=== PATIENT | female | born 1985 | race Hispanic/Latino ===

== ENCOUNTER 2017-03-26 10:20 | Emergency (ER) | payer OTHER ==
[2017-03-26 10:20] VITALS: BMI 29.0
[2017-03-26 10:26] VITALS: BP 128/83; PULSE 75; RESP 18; TEMP 97.9; O2SAT 98
[2017-03-26] MEDS ORDERED: Silver Sulfadiazine 1% Cream (25 gm) TP STA (10:40)
--- NOTE | 2017-03-26 10:41 | ED PDOC ---
Arrival/HPI - General Chief Complaint: Burn Time Seen by Provider: 03/26/17 10:38 Historian: Patient - History of Present Illness Narrative History of Present Illness (Text): 03/26/17 10:30 Adan Monroe is a 32 year old female, who presents to the emergency department complaining of a superficial burn on her 3rd to 5th digits on the right hand prior to arrival. Patient reports as she was getting her coffee, the coffee spilled burning her fingers. Patient denies other complaints. Time/Duration: Prior to Arrival Symptom Onset: Sudden Symptom Course: Unchanged Activities at Onset: Light Past Medical History - Provider Review Nursing Documentation Reviewed: Yes - Infectious Disease Hx of Infectious Diseases: None - Tetanus Immunization Tetanus Immunization: Unknown - Past Medical History Past Medical History: No Previous - Cardiac Hx Cardiac Disorders: No - Pulmonary Hx Respiratory Disorders: Yes Hx Asthma: Yes - Neurological Hx Neurological Disorder: No - HEENT Hx HEENT Disorder: No - Renal Hx Renal Disorder: No - Endocrine/Metabolic Hx Endocrine Disorders: No - Hematological/Oncological Hx Blood Disorders: Yes Hx Hepatitis C: Yes - Integumentary Hx Dermatological Disorder: No - Musculoskeletal/Rheumatological Hx Musculoskeletal Disorders: No - Gastrointestinal Hx Gastrointestinal Disorders: No - Genitourinary/Gynecological Hx Genitourinary Disorders: No - Psychiatric Hx Psychophysiologic Disorder: Yes Hx Depression: No 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) Other/Comment: hx of substance abuse - Surgical History Hx Orthopedic Surgery: Yes (right ankle) - Anesthesia Hx Anesthesia: Yes Hx Anesthesia Reactions: No - Suicidal Assessment Feels Threatened In Home Enviroment: No Family/Social History - Physician Review Nursing Documentation Reviewed: Yes Family/Social History: Other (non-contributory) Smoking Status: Former Smoker Hx Alcohol Use: No 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) Hx Substance Use Treatment: Yes Allergies/Home Meds Allergies/Adverse Reactions: Allergies Penicillins Allergy (Verified 03/26/17 10:26) RASH Home Medications: Home Meds Medication Instructions Recorded Confirmed Methadone [Methadose] 50 mg PO DAILY 12/05/14 03/26/17 Review of Systems - Review of Systems Constitutional: absent: Fevers Respiratory: absent: SOB Skin: Other (burn on 3rd to 5th right digits on hand) Physical Exam Vital Signs Reviewed: Yes Vital Signs Temp Pulse Resp BP Pulse Ox 03/26/17 10:25 97.9 F 75 18 128/83 98 Temperature: Afebrile Blood Pressure: Normal Pulse: Regular Respiratory Rate: Normal Appearance: Positive for: Well-Appearing, Non-Toxic, Comfortable Pain Distress: None Mental Status: Positive for: Alert and Oriented X 3 - Systems Exam Head: Present: Atraumatic, Normocephalic Upper Extremity: Present: Normal Inspection, Normal ROM, NORMAL PULSES, Erythema (mild erythema over medial aspect of 4th digit on right hand. No noted blisters.). No: Cyanosis, Edema Neurological: Present: GCS=15, CN II-XII Intact, Speech Normal Skin: Present: Warm, Dry, Erythematous (mild erythema over medial aspect of 4th digit. No noted blisters.). No: Rashes Psychiatric: Present: Alert, Oriented x 3, Normal Insight, Normal Concentration Medical Decision Making ED Course and Treatment: abx ointment and dressing applied - Medication Orders Current Medication Orders: Discontinued Medications Silver Sulfadiazine (Silvadene 1% 25 Gm) 0 gm TP STAT STA Stop: 03/26/17 10:41 Last Admin: 03/26/17 10:52 Dose: 1 gm - Scribe Statement The provider has reviewed the documentation as recorded by the Scribe Cindy Rajan Provider Scribe Attestation: All medical record entries made by the Scribe were at my direction and personally dictated by me. I have reviewed the chart and agree that the record accurately reflects my personal performance of the history, physical exam, medical decision making, and the department course for this patient. I have also personally directed, reviewed, and agree with the discharge instructions and disposition. Disposition/Present on Arrival - Present on Arrival Any Indicators Present on Arrival: No History of DVT/PE: No History of Uncontrolled Diabetes: No Urinary Catheter: No History of Decub. Ulcer: No History Surgical Site Infection Following: None - Disposition Have Diagnosis and Disposition been Completed?: Yes Diagnosis: Superficial burn of hand Disposition: HOME/ ROUTINE Disposition Time: 10:35 Patient Plan: Discharge Condition: STABLE Discharge Instructions (ExitCare): Superficial Burn (ED) Additional Instructions: Please follow up with your doctor. Return to the ER for any worsening symptoms or for any other concerns. Referrals: [facility] [place] - Follow up with primary Forms: [employer] (German)
== END 2017-03-26 10:57 | disposition home or self-care (01) ==
LOC: ED 10:20
DX: T23.131A Burn of first degree of multiple right fingers (nail), not including thumb, initial encounter (principal); X10.0XXA Contact with hot drinks, initial encounter

== ENCOUNTER 2018-10-05 11:25 | Emergency (ER) | payer OTHER ==
[2018-10-05 11:30] VITALS: BP 135/76; PULSE 103; RESP 18; TEMP 98.2; O2SAT 98; BMI 29.5
--- NOTE | 2018-10-05 12:06 | ED PDOC ---
Arrival/HPI - General Historian: Patient - History of Present Illness Narrative History of Present Illness (Text): 10/05/18 12:12 A 33 year old female, with no significant past medical history, who presents to the ED complaining of left side dental pain x 2 days, L jaw pain and swelling since this AM. Patient reports she saw her dentist yesterday regarding the pain, who prescribed her Amoxicillin 500 to be taken 3 times a day. Patient also notes waking up today and noticing swelling in addition to the pain. Patient denies any fever, chills, headache, redness, shortness of breath or difficulty swallowing. Time/Duration: 4-6 hours Symptom Onset: Gradual Symptom Course: Unchanged Activities at Onset: Light Context: Home <Radha Dumas PA-C - Last Filed: 10/05/18 14:33> <Viraj Benítez - Last Filed: 10/05/18 15:11> - General Chief Complaint: Dental Pain Time Seen by Provider: 10/05/18 11:28 Past Medical History - Provider Review Nursing Documentation Reviewed: Yes - Infectious Disease Hx of Infectious Diseases: None - Tetanus Immunization Tetanus Immunization: Unknown - Past Medical History Past Medical History: No Previous - Cardiac Hx Cardiac Disorders: No - Pulmonary Hx Asthma: Yes - Neurological Hx Neurological Disorder: No - HEENT Hx HEENT Disorder: No - Renal Hx Renal Disorder: No - Endocrine/Metabolic Hx Endocrine Disorders: No - Hematological/Oncological Hx Blood Disorders: Yes Hx Hepatitis C: Yes - Integumentary Hx Dermatological Disorder: No - Musculoskeletal/Rheumatological Hx Musculoskeletal Disorders: No - Gastrointestinal Hx Gastrointestinal Disorders: No - Genitourinary/Gynecological Hx Genitourinary Disorders: No - Psychiatric Hx Depression: No 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) - Surgical History Hx Orthopedic Surgery: Yes (right ankle) - Anesthesia Hx Anesthesia: Yes Hx Anesthesia Reactions: No - Suicidal Assessment Feels Threatened In Home Enviroment: No <Radha Dumas PA-C - Last Filed: 10/05/18 14:33> Family/Social History - Physician Review Nursing Documentation Reviewed: Yes Family/Social History: Unknown Family HX Smoking Status: Light Smoker < 10 Cigarettes Daily Hx Alcohol Use: No 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) Hx Substance Use Treatment: Yes <Radha Dumas PA-C. - Last Filed: 10/05/18 14:33> Allergies/Home Meds <Radha Dumas PA-C - Last Filed: 10/05/18 14:33> <Viraj Benítez - Last Filed: 10/05/18 15:11> Allergies/Adverse Reactions: Allergies Penicillins Allergy (Verified 08/08/18 13:05) VOMITING Home Medications: Home Meds Medication Instructions Recorded Confirmed Methadone [Methadose] 80 mg PO DAILY 12/05/14 08/08/18 Review of Systems - Physician Review All systems were reviewed & negative as marked: Yes - Review of Systems Constitutional: Normal Eyes: Normal ENT: absent: Other (left jaw pain and swelling) Respiratory: absent: SOB, Cough Cardiovascular: absent: Chest Pain Gastrointestinal: absent: Abdominal Pain, Nausea, Vomiting Genitourinary Female: absent: Dysuria, Frequency Musculoskeletal: absent: Back Pain, Neck Pain Skin: Normal. absent: Rash Neurological: Normal. absent: Headache Endocrine: absent: Diaphoresis Hemo/Lymphatic: absent: Adenopathy Psychiatric: absent: Anxiety, Depression <Radha Dumas PA-C - Last Filed: 10/05/18 14:33> Physical Exam Vital Signs Reviewed: Yes Vital Signs Temp Pulse Resp BP Pulse Ox 10/05/18 11:29 98.2 F 103 H 18 135/76 98 Temperature: Afebrile Blood Pressure: Normal Pulse: Tachycardic Respiratory Rate: Normal Appearance: Positive for: Well-Appearing, Non-Toxic, Comfortable Mental Status: Positive for: Alert and Oriented X 3 - Systems Exam Head: Present: Atraumatic, Normocephalic Pupils: Present: PERRL Extroacular Muscles: Present: EOMI Conjunctiva: Present: Normal Ears: Present: Normal Mouth: Present: Moist Mucous Membranes, Other (Mild edema to left mandible, no erythema. +two left bottom molars remaining, which are decaying due to poor dentition.) Pharnyx: Present: Normal. No: ERYTHEMA, EXUDATE, TONSILS ENLARGED, Uvular Deviation Nose (External): Present: Atraumatic Nose (Internal): Present: Normal Inspection Neck: Present: Normal Range of Motion. No: Meningeal Signs, MIDLINE TENDERNESS, Paraspinal Tenderness, Lymphadenopathy Neurological: Present: GCS=15, CN II-XII Intact, Speech Normal Skin: Present: Warm, Dry, Normal Color. No: Rashes Psychiatric: Present: Alert, Oriented x 3, Normal Insight, Normal Concentration <Radha Dumas PA-C - Last Filed: 10/05/18 14:33> Vital Signs Temp Pulse Resp BP Pulse Ox 10/05/18 11:29 98.2 F 103 H 18 135/76 98 <Viraj Beníetz - Last Filed: 10/05/18 15:11> Medical Decision Making ED Course and Treatment: Impression: A 33 year old patient who presents to the ED for left side jaw swelling and p ain. Diagnosis: 2 left bottom molars remaining, which are decaying with mild gingival swelling and tenderness due to poor dentition. Plan: -- Discharge, outpatient follow up Prior Visits: Notes and results from previous visits were reviewed. Patient was last seen in the emergency department on Progress Notes: 10/05/18 12:02 Advised to follow up with her dentist on her scheduled appointment in 2 days without fail. Advised to continue current antibiotics, apply warm compresses. Return to the emergency room at any time for any new or worsening symptoms. Patient states she fully agrees with and understands discharge instructions. States that she agrees with the plan and disposition. Verbalized and repeated discharge instructions and plan. I have given the patient opportunity to ask any additional questions. <Radha Dumas PA-C - Last Filed: 10/05/18 14:33> - PA / SEED ANALYSIS LABORATORY ASSISTANT / Resident Statement / has reviewed & agrees with the documentation as recorded. - Scribe Statement The provider has reviewed the documentation as recorded by the Billy Mohan Provider Scribe Attestation: All medical record entries made by the Billy were at my direction and personally dictated by me. I have reviewed the chart and agree that the record accurately reflects my personal performance of the history, physical exam, medical decision making, and the department course for this patient. I have also personally directed, reviewed, and agree with the discharge instructions and disposition. <Radha Dumas PA-C - Last Filed: 10/05/18 14:33> - PA / SEED ANALYSIS LABORATORY ASSISTANT / Resident Statement KISHA has reviewed & agrees with the documentation as recorded. <Viraj Benítez - Last Filed: 10/05/18 15:11> Disposition/Present on Arrival - Present on Arrival Any Indicators Present on Arrival: No History of DVT/PE: No History of Uncontrolled Diabetes: No Urinary Catheter: No History of Decub. Ulcer: No History Surgical Site Infection Following: None - Disposition Have Diagnosis and Disposition been Completed?: Yes Disposition Time: 11:50 Patient Plan: Discharge <Radha Dumas PA-C - Last Filed: 10/05/18 14:33> <Viraj Benítez - Last Filed: 10/05/18 15:11> - Disposition Diagnosis: Dental abscess Disposition: HOME/ ROUTINE Condition: STABLE Discharge Instructions (ExitCare): Tooth Abscess (DC), Dental Pain (DC) Additional Instructions: Thank you for letting us take care of you today. You were treated for L dental pain/abscess. The emergency medical care you received today was directed at your acute symptoms. Apply warm compresses, continue current antibiotics. It may take several days for your symptoms to resolve. Return to the Emergency Department if your symptoms worsen, do not improve, or if you have any other problems. Please follow up with your dentist on your scheduled appointment. Bring any paperwork you were given at discharge with you along with any medications you are taking to your follow up visit. Our treatment cannot replace ongoing medical care by a primary care provider (PCP) outside of the emergency department. Thank you for allowing the [facility] team to be part of your care today. Forms: varinode (Serbian), WORK NOTE
== END 2018-10-05 12:12 | disposition home or self-care (01) ==
LOC: ED 11:25
DX: K04.7 Periapical abscess without sinus (principal)